=== PATIENT | male | born 1960 | race Caucasian/White ===

== ENCOUNTER 2018-08-29 13:59 | Emergency (ER) | payer BC, OTHER ==
[2018-08-29] MEDS ORDERED: Bupivacaine 0.5% 10 ML SDV INJECT ONE (14:24)
--- NOTE | 2018-08-29 14:24 | EDM.PDOC ---
<Tg Lea - Last Filed: 08/29/18 15:28> ED HPI GENERAL MEDICAL PROBLEM - General Chief Complaint: Laceration Stated Complaint: CUT ON ELBOW Time Seen by Provider: 08/29/18 14:00 Source of Information: Reports: Patient History Limitations: Reports: No Limitations - History of Present Illness INITIAL COMMENTS - FREE TEXT/NARRATIVE: History of present illness: []Patient slipped and fell landing on his right elbow at 1:30 this afternoon. He has a laceration to the elbow with no active bleeding and is able to move the elbow without difficulty. Patient has had a a neck fusion in the past and states he has some pain in his left shoulder and neck from the fall.. He denies any other injuries, loss of consciousness, numbness or tingling. Patient is not up-to-date with tetanus. Review of systems: As per history of present illness and below otherwise all systems reviewed and negative. Past medical history: As per history of present illness and as reviewed below otherwise noncontributory. Surgical history: As per history of present illness and as reviewed below otherwise noncontributory. Social history: No reported history of drug or alcohol abuse. Family history: As per history of present illness and as reviewed below otherwise noncontributory. Physical exam: General: Well developed, well nourished in NAD HEENT: Atraumatic, normocephalic, pupils reactive, negative for conjunctival pallor or scleral icterus, mucous membranes moist, throat clear, neck supple, tender over her right trapezius no vertebral tenderness or step-offs to palpation, trachea midline. Lungs: Clear to auscultation, breath sounds equal bilaterally, chest nontender. Heart: S1S2, regular, negative for clicks, rubs, or JVD. Abdomen: NABS, Soft, nondistended, nontender. Negative for masses or hepatosplenomegaly. Negative for costovertebral tenderness. Pelvis: Stable nontender. Genitourinary: Deferred. Rectal: Deferred. Extremities: Right elbow laceration, full range of motion, NVI distally, negative for cords or calf pain. Neurovascular unremarkable. Neuro: Awake, alert, oriented. Cranial nerves II through XII unremarkable. Cerebellum unremarkable. Motor and sensory unremarkable throughout. Exam nonfocal. Skin:warm and dry Diagnostics: Right elbow x-ray, CT cervical spine Therapeutics: Tetanus update, declined pain meds, arm sling ED Course: Unremarkable Impression: Right elbow laceration, cervical strain Prescriptions: Tramadol, Flexeril Plan: [place] out in 7-10 days, follow up with primary care return if symptoms worsen or change. Definitive disposition and diagnosis as appropriate pending reevaluation and review of above. Upper Back Pain Score (Numeric/FACES): 4 Right Elbow Pain Score (Numeric/FACES): 4 - Related Data Allergies Allergy/AdvReac Type Severity Reaction Status Date / Time Sulfa (Sulfonamide Allergy Swelling Verified 08/29/18 14:17 Antibiotics) Home Meds: Home Meds Allopurinol [Zyloprim] 08/29/18 [History] Cyclobenzaprine [Flexeril] 10 mg PO BID PRN #12 tab 08/29/18 [Rx] Gluc 2KCl/Chondr/Rashad Hy/Hy Ac [Glucosamine & Chondroitin Cap] 08/29/18 [ History] Meloxicam 08/29/18 [History] amLODIPine [Norvasc] 08/29/18 [History] traMADol HCl [Tramadol HCl] 50 mg PO Q6H PRN #16 tablet 08/29/18 [Rx] Past Medical History Cardiovascular History: Reports: Hypertension Musculoskeletal History: Reports: Gout, Neck Pain, Chronic, Other (See Below) Other Musculoskeletal History: neck fusion - Infectious Disease History Infectious Disease History: Reports: Chicken Pox Social & Family History - Family History Family Medical History: Noncontributory - Tobacco Use Smoking Status *Q: Current Every Day Smoker Years of Tobacco use: 2 Packs/Tins Daily: 0.1 - Recreational Drug Use Recreational Drug Use: No ED ROS GENERAL - Review of Systems Review Of Systems: ROS reveals no pertinent complaints other than HPI. ED EXAM, SKIN/RASH Exam: See Below (History of present illness:) ED SKIN PROCEDURES - Laceration/Wound Repair elbow Lac/Wound length In cm: 4 Appearance: Subcutaneous Distal NVT: Neuro & Vascular Intact Anesthetic Type: Local Local Anesthesia - Lidocaine (Xylocaine): 1% Plain Local Anesthesia - Bupivicaine (Marcaine): 0.5% Plain Local Anesthetic Volume: 4cc Skin Prep: Saline Exploration/Debridement/Repair: Wound Explored Closed with: [place] Drain Placement: No Sterile Dressing Applied: Nurse Tetanus Status Addressed: Yes Complications: No Course - Vital Signs Last Recorded V/S: Last Vital Signs Temp 37.6 C 08/29/18 14:12 Pulse 105 H 08/29/18 14:12 Resp 16 08/29/18 14:12 BP 171/94 H 08/29/18 14:12 Pulse Ox 98 08/29/18 14:12 - Orders/Labs/Meds Orders: Active Orders 24 hr Category Date Time Status Splinting [RC] ASDIRECTED Care 08/29/18 15:31 Active Vaccines to be Administered [RC] PER UNIT ROUTINE Care 08/29/18 16:16 Active Meds: Medications Discontinued Medications Generic Name Dose Route Start Last Admin Trade Name Freq PRN Reason Stop Dose Admin Bupivacaine HCl 10 ml 08/29/18 14:24 08/29/18 14:39 Sensorcaine-Mpf 0.5% INJECT 08/29/18 14:25 10 ml ONETIME ONE Administration Diphtheria/Tetanus/Acell Pertussis 0.5 ml 08/29/18 16:16 08/29/18 16:26 Adacel IM 08/29/18 16:17 0.5 ml .ONCE ONE Administration Lidocaine HCl 5 ml 08/29/18 14:24 08/29/18 14:39 Xylocaine-Mpf 1% INJECT 08/29/18 14:25 5 ml ONETIME ONE Administration Departure - Departure Disposition: Home, Self-Care 01 Condition: Good Clinical Impression: Fall Qualifiers: Encounter type: initial encounter Qualified Code(s): W19.XXXA - Unspecified fall, initial encounter Laceration of right elbow Qualifiers: Encounter type: initial encounter Qualified Code(s): S51.011A - Laceration without foreign body of right elbow, initial encounter Cervical muscle strain Qualifiers: Encounter type: initial encounter Qualified Code(s): S16.1XXA - Strain of muscle, fascia and tendon at neck level, initial encounter - Discharge Information Prescriptions: Cyclobenzaprine [Flexeril] 10 mg PO BID PRN #12 tab PRN Reason: Pain traMADol HCl [Tramadol HCl] 50 mg PO Q6H PRN #16 tablet PRN Reason: Pain Referrals: PCP,None [Primary Care Provider] - Forms: ED Department Discharge <Riley Yañez - Last Filed: 08/29/18 16:29> ED HPI GENERAL MEDICAL PROBLEM - History of Present Illness INITIAL COMMENTS - FREE TEXT/NARRATIVE: Patient's emergency department course has been unremarkable CT C-spine negative for acute fracture or other acute finding patient be discharged home as above Departure - Departure Time of Disposition: 16:29
[2018-08-29] MEDS ORDERED: Bupivacaine 0.5% 10 ML SDV ONE (14:32)
--- NOTE | 2018-08-29 15:36 | CR ---
EXAMINATION: Right elbow HISTORY: Fall COMPARISON: None TECHNIQUE: 3 views FINDINGS/IMPRESSION: There is no acute osseous abnormality, right effusion, dislocation, or fracture. Bone mineralization and joint spaces are preserved. Osteophyte formation is noted within the right elbow with triceps insertional and medial epicondyle enthesophytes.
--- NOTE | 2018-08-29 16:11 | CT ---
EXAMINATION: CT cervical spine HISTORY: Pain COMPARISON: None TECHNIQUE: Axial CT imaging obtained through the cervical spine without contrast. Coronal and sagittal reconstructions obtained. FINDINGS: The cervical spinal alignment appears normal. Vertebral body heights appear maintained. There is anterior fusion of C3-C4. Flowing syndesmophytes are noted throughout the cervical spine with region of the vertebral bodies and facets at multiple levels. There is no fracture or acute osseous abnormality. Bone mineralization is mildly osteopenic. Paravertebral soft tissues are normal. Lung apices are clear. Visualized intracranial compartments are normal. IMPRESSION: 1. Osseous fusion of the majority of the visualized cervical and thoracic vertebra, likely representing ankylosing spondylitis. 2. No acute osseous abnormality demonstrated.
[2018-08-29] MEDS ORDERED: Diphtheria,Pertussis(Acell),Tetanus Vaccine 0.5 ML Syringe IM ONE (16:16)
[2018-08-29] MEDS ORDERED: Diphtheria,Pertussis(Acell),Tetanus Vaccine 0.5 ML Syringe ONE (16:19)
== END 2018-08-29 16:40 | disposition home or self-care (01) ==
LOC: MW.ED 13:59
DX: S51.011A Laceration without foreign body of right elbow, initial encounter (principal); S16.1XXA Strain of muscle, fascia and tendon at neck level, initial encounter; Z23 Encounter for immunization; F17.210 Nicotine dependence, cigarettes, uncomplicated; Z88.2 Allergy status to sulfonamides; W19.XXXA Unspecified fall, initial encounter
CPT/HCPCS: 12002; 72125; 73080; 90471; 90715; 99284; J3490

== ENCOUNTER 2018-09-06 09:12 | Emergency (ER) | payer OTHER | END 2018-09-06 09:30 | disposition left against medical advice (07) | LOC: MW.ED 09:12 | DX: Z53.21 Procedure and treatment not carried out due to patient leaving prior to being seen by health care provider (principal) ==

== ENCOUNTER 2021-09-09 07:52 | Emergency (ER) | payer OTHER ==
[2021-09-09] MEDS ORDERED: Acetaminophen/HYDROcodone 325-10 MG Tab PO ONE (08:08)
== END 2021-09-09 09:25 | disposition home or self-care (01) ==
LOC: MW.ED 07:52
DX: S20.211A Contusion of right front wall of thorax, initial encounter (principal); I10 Essential (primary) hypertension; M10.9 Gout, unspecified; Z88.2 Allergy status to sulfonamides; Z79.899 Other long term (current) drug therapy; W18.39XA Other fall on same level, initial encounter; Y99.0 Civilian activity done for income or pay
CPT/HCPCS: 71046; 99283; A9270